=== PATIENT | female | born 2000 | race Hispanic/Latino ===

== ENCOUNTER 2020-12-17 16:22 | Emergency (ER) | payer MEDICAID ==
[~2020-12-17] VITALS: Ht 154.9 cm; Wt 68.0 kg
[2020-12-17 17:11] VITALS: BP 160/74
[2020-12-17] MEDS ORDERED: DOXY200T8 PO (17:17)
[2020-12-17] MEDS ORDERED: ACYC-138 PO (17:17)
[2020-12-17] MEDS ORDERED: METH4TAB PO (17:17)
[2020-12-17 17:46] VITALS: BP 141/73
== END 2020-12-17 17:47 | disposition home or self-care (01) ==
LOC: EDH 16:22
DX: G51.0 Bell's palsy (principal); Z79.899 Other long term (current) drug therapy
CPT/HCPCS: 93005

== ENCOUNTER 2024-05-20 21:52 | Emergency (ER) | payer BC, MEDICAID ==
[~2024-05-20] VITALS: Ht 152.4 cm; Wt 81.6 kg
[~2024-05-20 21:52] MED LIST: ACYC-138 PO; DOXY200T8 PO; METH4TAB PO
[2024-05-20 21:54] VITALS: BP 139/82; PULSE 87; RESP 20; TEMP 99
[2024-05-20] MEDS: morPHINE 2 MG SYG IM ONE (22:58)
--- NOTE | 2024-05-20 23:20 | NUR ---
PER PA VERBAL ORDER IRRIGATED LEFT EAR CANAL WITH WARM NS, TOOK OUT VERY SMALL AMOUNT OF POSSIBLE WAX, PATIENT TOLERATED WELL. SPOUSE AT BEDSIDE.
[2024-05-20] MEDS ORDERED: AMOX875T2 PO (23:34)
--- NOTE | 2024-05-20 23:34 | ERN ---
General Chief Complaint: Tooth Ache/Pain Stated Complaint: C/O TOOTACHE TO LEFT SIDE WITH LEFT EAR PAIN Time Seen by MD: 22:15 Time Seen by Midlevel: 22:15 Source: patient History of Present Illness Initial Comments 24-year-old female who presents to the ED due to left ear pain and toothache onset yesterday. Patient reports currently be 31 weeks . Denies any abdominal pain /cramping, fever, or further associated symptoms. Patient states she has a follow up appointment with PCP tomorrow. Denies significant past medical history Allergies: Coded Allergies: No Known Allergies (Unverified Allergy, Unknown, 12/17/20) Home Meds Active Scripts Amoxicillin (Amoxicillin) 875 Mg Tablet, 875 MG PO BID for 7 Days, #14 TAB Prov:AMBER CURRY 05/20/24 Doxycycline Hyclate (Doxycycline Hyclate) 200 Mg Tablet.dr, 200 MG PO BID for 10 Days, #20 TAB Prov:FRANCESCO GOLDMAN 12/17/20 Methylprednisolone (Medrol) 4 Mg Tablet, 4 MG PO as directed for 5 Days, #1 PACK Prov:FRANCESCO GOLDMAN 12/17/20 Acyclovir (Acyclovir) 800 Mg Tablet, 800 MG PO 5X/DAY for 5 Days, #25 TAB Prov:FRANCESCO GOLDMAN 12/17/20 Past Medical History Past Medical History: No Pertinent History Past Surgical History: None Social History Social History: Negative ROS Dictation Constitutional: Negative for fever,chills, and weight loss Eyes: Negative for injury, pain,redness, and discharge ENT: Positive for left tooth pain, and left ear pain Negative for injury,pain or swelling Cardiovascular: Negative for chest pain, palpitations, and edema Respiratory: Negative for shortness of breath, cough, and wheezing, Abdomen/GI: Negative for abdominal pain, nausea, vomiting, diarrhea, and constipation Back: Negative for injury and pain : Negative for painful urination, bleeding or discharge MS/Extremity: Negative for injury and deformity Skin: Negative for rash, and discoloration Neuro: Negative for headache, weakness, numbness, tingling, and seizure Psych: Negative for suicide ideation, homicidal ideation, and hallucinations Physical Exam Physical Exam Dictation General: awake, alert, no acute distress Head/Face: Normocephalic, atraumatic Eyes: normal conjunctiva ENT: oral cavity clear, oral mucosa moist, no signs of infection in the oral cavity, all teeth intact, cerumen noted in the left ear canal after irrigation and cerumen removed otitis media noted to the left TM Neck: Normal range of motion, supple Cardiovascular: RRR, normal S1/S2 Respiratory: CTAB, no respiratory distress, no rales or wheezes Skin: Warm, dry, normal turgor, no rash MS/Extremity: Pulses equal, no cyanosis, neurovascular intact, FROM Neuro: COAx4, GCS 15, no neurological deficits, normal gait, Psych: Normal behavior, mood, and affect normal MDM MDM: Differential diagnosis: Otitis media, otitis externa, tooth infection/cavity Rationale: 24-year-old female who presents to the ED due to left ear pain and toothache onset yesterday. Patient reports currently be 31 weeks . Denies any abdominal pain /cramping, fever, or further associated symptoms. Patient states she has a follow up appointment with PCP tomorrow. Patient states she has been taking Tylenol day with no improvement. Denies significant past medical history Per physical examination wax noted to the left ear canal, post irrigation otitis media noted of the left ear. Oral cavity clear with no indications infection noted. Patient was educated on findings and diagnosis. Prescribed antibiotics for outpatient treatment. Advised to follow up with the PCP. Return to the ED if any worsening symptoms. Patient verbalized understanding. Patient stable for discharge. There are no social concerns with this patient. I independently interpreted the test that were performed, results were reviewed by me and considered findings on radiology if ordered. Medical management and examination interpretation discussions were had by me with other qualified healthcare professionals as indicated for the patient's care. ED Course Orders Procedure Category Date Status Time Morphine 2mg Syg PHA 05/20/24 Complete (Morphine 2mg Syg) 23:00 Amoxicillin 500mg Cap PHA 05/20/24 Complete (Amoxicillin 500mg 23:30 Acetaminophen 500mg PHA 05/21/24 Complete Tab (Tylenol 500mg T 00:00 Current Medications Medications (Trade) Dose Ordered Sig/Frankie Route PRN Reason Start Time Stop Time Status Last Admin Dose Admin Acetaminophen (TYLenol 500MG TAB) 1,000 mg ONCE ONCE PO 05/21/24 00:00 05/20/24 23:50 DC 05/20/24 23:46 Amoxicillin (Amoxicillin 500mg Cap) 875 mg ONCE ONCE PO 05/20/24 23:30 05/20/24 23:32 DC 05/20/24 23:47 Morphine Sulfate (morPHINE 2MG SYG) 2 mg ONCE ONCE IM 05/20/24 23:00 05/20/24 23:01 DC 05/20/24 22:58 Vital Signs Date Time Temp Pulse Resp B/P (MAP) Pulse Ox O2 Delivery O2 Flow Rate FiO2 05/20/24 21:54 99.0 87 20 139/82 99 Room Air DX & DISP Disposition: Discharge Departure Impression: Primary Impression: Otitis media Additional Impression: Left ear pain Condition: Stable Scripts Amoxicillin (Amoxicillin) 875 Mg Tablet 875 MG PO BID for 7 Days, #14 TAB Prov: AMBER CURRY 05/20/24 Additional Instructions: Discharge home. Rest. Follow up with primary care DrHenri in 24 hours. Return to the ER for any acute changes or worsening symptoms. If any medications were prescribed take as directed. Okay to continue home medications unless otherwise discussed during your visit in the emergency room today. Patient was also advised to follow-up with primary care physician in 1 to 2 days for continued monitoring. Follow up with OBGYN in 1-2 days. Referrals: SELF,REFERRAL (PCP) I participated in the following activities of this patient's care: For this patient encounter, I reviewed the PA or SYSTEM SOFTWARE PROGRAMMER documentation, treatment plan, and medical decision making. I did not have [id number] time with this patient. I will sign as the reviewing DrHenri And agree with the treatment plan and disposition. AMBER UCRRY May 20, 2024 23:34
[2024-05-20] MEDS: acetaMINOPHEN 500 MG TABLET PO ONE (23:46)
[2024-05-20] MEDS: AMOXICILLIN 500 MG CAPSULE PO ONE (23:47)
== END 2024-05-20 23:50 | disposition home or self-care (01) ==
LOC: EDH 21:52
DX: O26.893 Other specified pregnancy related conditions, third trimester (principal); H66.92 Otitis media, unspecified, left ear; H92.02 Otalgia, left ear; Z3A.31 31 weeks gestation of pregnancy
CPT/HCPCS: 99283; 96372; J2270 ×2